=== PATIENT | female | born 1960 | race African-American/Black ===

== ENCOUNTER 2019-10-24 09:06 | Emergency (ER) | payer MEDICAID, MEDICARE ==
[~2019-10-24] VITALS: Ht 176.5 cm; Wt 92.0 kg
[~2019-10-24 09:06] MED LIST: DIPH1TAB24 PO; METO-396 PO; PRAV40TA58 PO; TRAM50TA94 PO
[2019-10-24 10:54] LABS: CLARITY URINE CLEAR (CLEAR); COLOR URINE YELLOW (YELLOW); KETONES URINE 1+ (NEGATIVE); LEUKOCYTE ESTERASE URINE NEGATIVE (NEGATIVE); NITRITE URINE NEGATIVE (NEGATIVE); OCCULT BLOOD URINE NEGATIVE (NEGATIVE); PH URINE 5.5 (4.5-8.0); PROTEIN URINE TRACE (NEGATIVE); UROBILINOGEN URINE 0.2 E.U./dL (0.2-1.0)
[2019-10-24 11:03] LABS: BASOPHILS % 0.4 % (0.0-2.0); EOSINOPHILS % 0.1 % (0.0-5.0); HEMATOCRIT. 53.2 % (36.0-48.0); HEMOGLOBIN. 17.2 g/dL (12.0-16.0); LYMPHOCYTES % 15.2 % (20.0-50.0); MEAN CORPUSCULAR HEMOGLOBIN 25.9 pg (28.0-32.0); MONOCYTES % 6.4 % (2.0-8.0); NEUTROPHILS % 77.9 % (40.0-76.0); RED BLOOD CELL COUNT 6.64 mill/uL (4.2-5.4); RED CELL DISTRIBUTION WIDTH 18.1 % (11.6-14.6)
[2019-10-24 11:14] LABS: INR 1.1; PROTHROMBIN TIME 11.5 sec (9.6-11.0)
[2019-10-24 11:16] LABS: CHLORIDE 99 mEq/L (98-107)
[2019-10-24 11:27] LABS: MEAN PLATELET VOLUME 10.4 fl (7.4-10.4); PLATELET 339 x1000/uL (130-400)
[2019-10-24 13:25] VITALS: BP 148/88
== END 2019-10-24 13:27 | disposition home or self-care (01) ==
LOC: ER 09:06
DX: M79.18 Myalgia, other site (principal); R11.10 Vomiting, unspecified; Z87.891 Personal history of nicotine dependence; F12.10 Cannabis abuse, uncomplicated; J44.9 Chronic obstructive pulmonary disease, unspecified; I10 Essential (primary) hypertension; Z98.890 Other specified postprocedural states; Z79.899 Other long term (current) drug therapy; Z88.1 Allergy status to other antibiotic agents
CPT/HCPCS: 36415; 71045; 81003; 83605; 84145; 87804; 93005; 99284